=== PATIENT | male | born 1980 | race Two or more races ===

== ENCOUNTER 2017-02-26 08:29 | Emergency (ER) | payer BC ==
[~2017-02-26] VITALS: Ht 177.8 cm; Wt 79.5 kg
[2017-02-26 09:01] LABS: microscopic required? NO
[2017-02-26 09:28] LABS: urine erythrocyte NEGATIVE (NEGATIVE)
[2017-02-26 11:21] VITALS: BP 133/75
== END 2017-02-26 11:21 | disposition home or self-care (01) ==
LOC: ED 08:29
PROVIDERS: Emergency Medicine
DX: N45.2 Orchitis (principal); R03.0 Elevated blood-pressure reading, without diagnosis of hypertension
CPT/HCPCS: 87491; 87591; J0696; J1885